=== PATIENT | male | born 1950 | race Caucasian/White ===

== ENCOUNTER 2023-10-12 10:03 | Outpatient (CLI) | payer MEDICARE, SELFPAY | END 2023-10-12 10:04 | disposition home or self-care (01) | LOC: MRI 10:04 | PROVIDERS: PCP Family Medicine; Visit Provider Internal Medicine | DX: C61 Malignant neoplasm of prostate (principal) | CPT/HCPCS: 72195; 84153; 96401; J9155 ==

== ENCOUNTER 2024-02-04 11:30 | Outpatient (RCR) | payer MEDICARE, SELFPAY ==
--- NOTE | 2023-10-09 10:47 | URNOTE ---
[employer] ([id number]) has been approved, 10/09/2023-10/08/2024. auth #[id number]
[2023-10-12 09:55] VITALS: BP 144/83; PULSE 67; RESP 18; TEMP 36.9; O2SAT 98
[2023-10-12 11:18] LABS: PSA Diagnostic* 7.72 ng/mL (0.10-4.00)
[2023-10-14 11:47] LABS: Testosterone, Adult Male 838 ng/dL (300-720)
[2023-11-09 08:52] VITALS: BP 116/70; PULSE 63; RESP 16; TEMP 37; O2SAT 96
[2023-11-09] MEDS: DEGARELIX ACETATE 80 MG INJ SUBCUT (09:16)
[2023-12-07 08:40] VITALS: BP 129/71; PULSE 75; RESP 18; TEMP 35.9; O2SAT 95
[2023-12-07] MEDS: DEGARELIX ACETATE 80 MG INJ SUBCUT (09:03)
--- NOTE | 2023-12-11 09:31 | URNOTE ---
[employer]([id number]) has been approved 12/11/2023-12/10/2024. Auth #[id number]
[2024-01-04 08:00] VITALS: BP 101/64; PULSE 58; RESP 16; TEMP 36.1; O2SAT 97
[2024-01-04] MEDS: LEUPROLIDE ACETATE 7.5 MG (SQ) SYRINGE SUBCUT (09:20)
[2024-02-04 11:38] VITALS: BP 116/69; PULSE 58; RESP 16; TEMP 36.3; O2SAT 95
[2024-02-04] MEDS: LEUPROLIDE ACETATE 22.5 MG (SQ) SYRINGE SUBCUT (11:49)
== END 2024-04-09 23:59 | disposition home or self-care (01) ==
LOC: CCIC 11:30
PROVIDERS: PCP Family Medicine; Referring Provider Family Medicine; Visit Provider Internal Medicine
DX: C61 Malignant neoplasm of prostate (principal)
CPT/HCPCS: 36415; 84153; 84403; 96401; J9155; J9217

== ENCOUNTER 2024-03-18 14:51 | Outpatient (CLI) | payer MEDICARE, SELFPAY | END 2024-03-18 14:52 | disposition home or self-care (01) | LOC: MRI 14:52 | PROVIDERS: PCP Family Medicine; Visit Provider Nurse Practitioner | DX: C61 Malignant neoplasm of prostate (principal) | CPT/HCPCS: 72195 ==

== ENCOUNTER 2024-05-05 10:37 | Outpatient (RCR) | payer MEDICARE, SELFPAY ==
[2024-05-05 10:47] VITALS: BP 98/64; PULSE 68; RESP 16; TEMP 36.1; O2SAT 98
[2024-05-05] MEDS: LEUPROLIDE ACETATE 22.5 MG (SQ) SYRINGE SUBCUT (11:22)
== END 2024-11-01 23:59 | disposition home or self-care (01) ==
LOC: CCIC 10:37
PROVIDERS: PCP Family Medicine; Referring Provider Family Medicine; Visit Provider Internal Medicine
DX: C61 Malignant neoplasm of prostate (principal); Z79.818 Long term (current) use of other agents affecting estrogen receptors and estrogen levels
CPT/HCPCS: 96401; 96402; J9217